=== PATIENT | female | born 1990 | race Caucasian/White ===

== ENCOUNTER 2018-12-11 17:30 | Emergency (ER) | payer BC ==
[2018-12-11 18:44] VITALS: BP 119/75; PULSE 87; RESP 16; TEMP 98.2
--- NOTE | 2018-12-11 18:54 | ED ---
Skin/Abscess/FB HPI - General Chief complaint: Skin/Abscess/Foreign Body Stated complaint: mastitis Time Seen by Provider: 12/11/18 17:37 Source: patient Mode of arrival: ambulatory Limitations: no limitations - History of Present Illness Initial comments: 28-year-old female A1 presenting today for chief complaint of breast check. Patient states that she was recently diagnosed with mastitis on Friday with erythema of the left breast. Patient states that she was started on antibiotic Keflex. Patient states that today she noticed discomfort, she thought this was due to engorgement of the breast and palms. Patient states pain persisted. She states her daughter is in the hospital for RSV. Patient states she has also had some body aches today. Patient states that since she had initiated the antibiotics there is significant reduction almost complete resolution of erythema. Patient denies fever stating her temperature was 99.5. Remaining review of systems negative, patient denies any recent shortness of breath, chest pain, back pain, abdominal pain, nausea or vomiting, numbness or tingling, dysuria or hematuria, constipation or diarrhea, headaches or visual changes, or any other complaints. Upon arrival mother is well-appearing, nontoxic no signs of acute distress. Patient is afebrile with vital signs within normal limits. - Related Data Home Medications Medication Instructions Recorded Confirmed Cephalexin [Keflex] 500 mg PO Q6H 12/11/18 12/11/18 Allergies Allergy/AdvReac Type Severity Reaction Status Date / Time codeine AdvReac Nausea & Verified 12/11/18 18:13 Vomiting Review of Systems ROS Statement: Those systems with pertinent positive or pertinent negative responses have been documented in the HPI. ROS Other: All systems not noted in ROS Statement are negative. Past Medical History Past Medical History: No Reported History History of Any Multi-Drug Resistant Organisms: None Reported Additional Past Surgical History / Comment(s): D&C Past Psychological History: No Psychological Hx Reported Smoking Status: Never smoker Past Alcohol Use History: Occasional Past Drug Use History: None Reported General Exam - General Exam Comments Initial Comments: General: The patient is awake and alert, in no distress, and does not appear acutely ill. Eye: Pupils are equal, round and reactive to light, extra-ocular movements are intact. No nystagmus. There is normal conjunctiva bilaterally. No signs of icterus. Cardiovascular: There is a regular rate and rhythm. No murmur, rub or gallop is appreciated. Respiratory: Lungs are clear to auscultation, respirations are non-labored, breath sounds are equal. No wheezes, stridor, rales, or rhonchi. Musculoskeletal: Normal ROM, no tenderness. Strength 5/5. Sensation intact. Pulses equal bilaterally 2+. Neurological: A&O x 3. CN II-XII intact, There are no obvious motor or sensory deficits. Coordination appears grossly intact. Speech is normal. Skin: Skin is warm and dry and no rashes or lesions are noted. Upon examination of the breasts bilaterally there is no sign of Erythema, no erythema of the left breast. Patient is mild tenderness to palpation over the left breast. There is no area of abscess or fluctuance. No warmth to palpation. Psychiatric: Cooperative, appropriate mood & affect, normal judgment. Limitations: no limitations Course Vital Signs 12/11/18 12/11/18 17:32 18:41 Temperature 98.3 F 98.2 F Pulse Rate 73 87 Respiratory 18 16 Rate Blood Pressure 109/70 119/75 O2 Sat by Pulse 98 100 Oximetry Medical Decision Making - Medical Decision Making Well-appearing 28-year-old female presenting for breast recheck. Patient states she presented to make sure the infection is clearing, patient currently on Keflex. No clinical signs concerning for mastitis or complicated process on examination. Patient appears well and nontoxic she is afebrile with vital signs within normal limits. At this time feel patient is stable for discharge with continuation of antibiotic regimen as previously prescribed. Patient is agreeable plan as well as discharge denies questions at this time. I did discuss the case with her provider Dr. Mandujano was agreeable patient plan of care and discharge. Return parameters were discussed at length patient verbalizes understanding. Patient discharged appearing well Disposition Clinical Impression: Mastitis Disposition: HOME SELF-CARE Condition: Good Instructions (If sedation given, give patient instructions): Mastitis (ED) Additional Instructions: Please use medication as discussed. Please follow-up with family doctor on Friday for reexamination. Please return to emergency room if the symptoms increase or worsen or for any other concerns. Is patient prescribed a controlled substance at d/c from ED?: No Referrals: Jaci Joe FNPBC [Primary Care Provider] - 1-2 days Time of Disposition: 18:54
== END 2018-12-11 19:00 | disposition home or self-care (01) ==
LOC: EC 17:30
DX: N61.0 Mastitis without abscess (principal); Z88.5 Allergy status to narcotic agent
CPT/HCPCS: 99283

== ENCOUNTER → 2024-12-22 | Outpatient (CLI) | payer OTHER ==
--- NOTE | 2024-12-22 15:28 | CT ---
EXAMINATION TYPE: CT wrist RT wo con DATE OF EXAM: 12/22/2024 COMPARISON: None CLINICAL INDICATION: Female, 34 years old with history of M25.531 PAIN IN RIGHT WRIST; [facility], Presurgic al planning right wrist CT DLP: 141.9 mGycm Automated exposure control for dose reduction was used. FINDINGS: There is a markedly comminuted, displaced and intra-articular fracture involving the distal right rad ius. The intra-articular component involves not only the radial carpal articulation but the radial ul chris articulation as well. There is a mild displaced fracture of the ulnar styloid process. The carpal bones and articulations are normal. IMPRESSION: MARKEDLY COMMINUTED AND DISPLACED INTRA-ARTICULAR FRACTURES OF THE DISTAL RADIUS AND ULNA DESCRIBE D ABOVE. [facility], Workstation: SARA 12/22/2024 3:26 PM
== END | disposition home or self-care (01) ==
LOC: RADCTMAIN 14:01
PROVIDERS: ATTEND Orthopaedic Surgery
DX: Z01.818 Encounter for other preprocedural examination (principal); S52.571A Other intraarticular fracture of lower end of right radius, initial encounter for closed fracture